=== PATIENT | female | born 1995 | race American Indian/Alaskan Native ===

== ENCOUNTER 2018-12-17 10:20 | Emergency (ER) | payer MEDICAID ==
[2018-12-17] MEDS ORDERED: KEPPRA 1,000 MG/NS 0.75% 100ML 1,000 MG/100 ML BAG IV ONE (13:12)
--- NOTE | 2018-12-17 13:12 | Emergency Department Report ---
ED Seizure HPI - General Chief Complaint: Seizure Stated Complaint: SEIZURE/HEAD PAIN/TONGUE Time Seen by Provider: 12/17/18 13:08 Source: patient Mode of arrival: Ambulatory Limitations: No Limitations - History of Present Illness Initial Comments: Ms. Melendez is a 23-year-old female with history of epilepsy. After speaking to mother on the phone, she had a seizure. Her last seizure was 3 weeks ago. She normally takes Keppra. However she did not have health insurance for quite some time. She has recently regained Medicaid insurance. She has been under a lot of stress. Her roommate plans to move out. She is concerned about living alone considering her diagnosis epilepsy. She also concerned about financial stress. She is employed. She does not drive. She came to the emergency department with the car ride service. MD Complaint: possible seizure -: During the night Witnessed:: No Trauma: No Seizure History: known seizure disorder Place: home Possible Precipitating Event: none - Related Data Home Medications Medication Instructions Recorded Confirmed Last Taken lamoTRIgine [LaMICtal Xr] 300 mg PO BID 08/24/13 04/24/14 04/24/14 10:00 levETIRAcetam [Keppra TAB] 1,500 mg PO DAILY 08/24/13 04/24/14 04/24/14 10:00 levETIRAcetam [Keppra TAB] 2,000 mg PO HS 08/24/13 04/24/14 04/24/14 01:00 Folic Acid [Folvite] 1 mg PO QDAY 04/24/14 04/24/14 04/24/14 10:00 Previous Rx's Medication Instructions Recorded Last Taken Type Amoxicillin/K Clav Tab [Augmentin 1 tab PO BID #20 tablet 04/24/14 Unknown Rx 875MG] Fluticasone Propionate [Flonase] 2 sprays NS QDAY #1 spray 04/24/14 Unknown Rx Hydrocortisone 2.5% [Hytone 2.5% 1 applicatio TP TID #3 tube 04/24/14 Unknown Rx CREAM] Ibuprofen [Motrin] 600 mg PO Q8H PRN #30 tablet 04/24/14 Unknown Rx Loratadine [Claritin] 10 mg PO DAILY #30 tablet 04/24/14 Unknown Rx hydrOXYzine HCL [Atarax] 25 mg PO Q6HR PRN #20 tablet 04/24/14 Unknown Rx predniSONE [Deltasone] 20 mg PO QDAY #5 tab 04/24/14 Unknown Rx levETIRAcetam [Keppra] 500 mg PO BID 30 Days #60 tablet 12/17/18 Unknown Rx Allergies Allergy/AdvReac Type Severity Reaction Status Date / Time peanut Allergy Angioedema Verified 04/24/14 14:19 ED Review of Systems ROS: Stated complaint: SEIZURE/HEAD PAIN/TONGUE Other details as noted in HPI Comment: All other systems reviewed and negative Constitutional: denies: fever, malaise Respiratory: denies: cough ED Past Medical Hx - Past Medical History Previous Medical History?: Yes Hx Seizures: Yes - Surgical History Past Surgical History?: No - Social History Smoking Status: Never Smoker Substance Use Type: None - Medications Home Medications: Home Medications Medication Instructions Recorded Confirmed Last Taken Type lamoTRIgine [LaMICtal Xr] 300 mg PO BID 08/24/13 04/24/14 04/24/14 10:00 History levETIRAcetam [Keppra TAB] 1,500 mg PO DAILY 08/24/13 04/24/14 04/24/14 10:00 History levETIRAcetam [Keppra TAB] 2,000 mg PO HS 08/24/13 04/24/14 04/24/14 01:00 History Amoxicillin/K Clav Tab [Augmentin 1 tab PO BID #20 tablet 04/24/14 Unknown Rx 875MG] Fluticasone Propionate [Flonase] 2 sprays NS QDAY #1 spray 04/24/14 Unknown Rx Folic Acid [Folvite] 1 mg PO QDAY 04/24/14 04/24/14 04/24/14 10:00 History Hydrocortisone 2.5% [Hytone 2.5% 1 applicatio TP TID #3 tube 04/24/14 Unknown Rx CREAM] Ibuprofen [Motrin] 600 mg PO Q8H PRN #30 tablet 04/24/14 Unknown Rx Loratadine [Claritin] 10 mg PO DAILY #30 tablet 04/24/14 Unknown Rx hydrOXYzine HCL [Atarax] 25 mg PO Q6HR PRN #20 tablet 04/24/14 Unknown Rx predniSONE [Deltasone] 20 mg PO QDAY #5 tab 07/04/14 Unknown Rx levETIRAcetam [Keppra] 500 mg PO BID 30 Days #60 tablet 12/17/18 Unknown Rx ED Physical Exam - General Limitations: No Limitations General appearance: alert, in no apparent distress - Head Head exam: Present: atraumatic, normocephalic - Eye Eye exam: Present: normal appearance - ENT ENT exam: Present: mucous membranes moist - Neck Neck exam: Present: normal inspection, full ROM. Absent: tenderness, meningismus - Respiratory Respiratory exam: Present: normal lung sounds bilaterally. Absent: respiratory distress, wheezes, rales, rhonchi - Cardiovascular Cardiovascular Exam: Present: regular rate, normal rhythm, normal heart sounds. Absent: systolic murmur, diastolic murmur, rubs, gallop - GI/Abdominal GI/Abdominal exam: Present: soft, normal bowel sounds. Absent: distended, tenderness, guarding, rebound - Extremities Exam Extremities exam: Present: normal inspection - Back Exam Back exam: Present: normal inspection - Neurological Exam Neurological exam: Present: alert, oriented X3 - Psychiatric Psychiatric exam: Present: normal affect, normal mood - Skin Skin exam: Present: warm, dry, intact, normal color. Absent: rash ED Course Vital Signs 12/17/18 10:52 Temperature 98.7 F Pulse Rate 87 Respiratory 18 Rate Blood Pressure 128/76 O2 Sat by Pulse 100 Oximetry ED Medical Decision Making - Lab Data Result diagrams: 12/17/18 13:39 12/17/18 13:39 - Medical Decision Making Jen is a 23-year-old female with history of epilepsy. She has seizure today in the weeks prior. Without health insurance she was unable to afford medication. She received Keppra load here in the ED. She was prescribed Keppra. She was referred to outpatient medicine clinic and neurologist. CBC chemistry within normal limits. Critical care attestation.: If time is entered above; I have spent that time in minutes in the direct care o f this critically ill patient, excluding procedure time. ED Disposition Clinical Impression: Epilepsy, Seizure Disposition: [id number] TO HOME OR SELFCARE Is pt being admited?: No Does the pt Need Aspirin: No Condition: Stable Instructions: Epilepsy (ED), Recurrent Seizures Adult (ED) Prescriptions: levETIRAcetam [Keppra] 500 mg PO BID 30 Days #60 tablet Referrals: [facility] [Other] - 3-5 Days GLORY TAI MD [Staff Physician] - 3-5 Days Forms: Work/School Release Form(ED)
[2018-12-17 13:56] LABS: Basophils % (Auto) 0.2 % (0.0-1.8); Eosinophils % (Auto) 0.5 % (0.0-4.3); Hematocrit 40.8 % (30.3-42.9); Hemoglobin 13.9 gm/dl (10.1-14.3); Lymphocytes # (Auto) 2.2 K/mm3 (1.2-5.4); Lymphocytes % (Auto) 35.7 % (13.4-35.0); Mean Corpuscular HGB Conc 34 % (30-34); Mean Corpuscular Volume 92 fl (79-97); Monocytes # (Auto) 0.6 K/mm3 (0.0-0.8); Monocytes % (Auto) 9.7 % (0.0-7.3); Platelet Count 235 K/mm3 (140-440); Red Blood Count 4.42 M/mm3 (3.65-5.03); Red Cell Distribution Width 13.7 % (13.2-15.2)
[2018-12-17 14:17] LABS: Alanine Aminotransferase 10 units/L (7-56); Albumin 4.6 g/dL (3.9-5); BUN/Creatinine Ratio 9; Blood Urea Nitrogen 7 mg/dL (7-17); Calcium 9.3 mg/dL (8.4-10.2); Hemolysis Index 18
[2018-12-17] MEDS ORDERED: IBUPROFEN PO ONE (15:07)
[2018-12-17 15:33] VITALS: BP 126/72
== END 2018-12-17 15:50 | disposition home or self-care (01) ==
LOC: ED 10:20
DX: G40.909 Epilepsy, unspecified, not intractable, without status epilepticus (principal); Z79.899 Other long term (current) drug therapy; Z91.010 Allergy to peanuts
CPT/HCPCS: 36415; 80053; 85025; 96374; 99283; J1953